=== PATIENT | female | born 1995 | race American Indian/Alaskan Native ===

== ENCOUNTER 2017-02-10 02:39 | Emergency (ER) | payer SELFPAY ==
[2017-02-10 03:26] VITALS: BP 113/66
== END 2017-02-10 05:30 | disposition left against medical advice (07) ==
LOC: ED 02:39
DX: T76.21XA Adult sexual abuse, suspected, initial encounter (principal); Z53.21 Procedure and treatment not carried out due to patient leaving prior to being seen by health care provider; Y92.9 Unspecified place or not applicable